=== PATIENT | female | born 1985 | race Hispanic/Latino ===

== ENCOUNTER 2023-05-31 05:41 | Emergency (ER) | payer SELFPAY ==
[2023-05-31] MEDS ORDERED: Morphine 4 MG/ML VIAL ONE (05:59)
[2023-05-31] MEDS ORDERED: Ondansetron PF 4 MG/2 ML Vial ONE (06:00)
[2023-05-31 06:09] LABS: #Eosinphils 0.1 thou/uL (0.0-0.7); #Monocytes 0.6 thou/uL (0.11-0.59); #Neutrophils 4.1 thou/uL (1.40-6.50); %Basophils 0.5 % (0.0-1.0); %Eosinophils 1.3 % (0.0-10.0); %Lymphocytes 34.9 % (21.0-51.0); %Monocytes 7.4 % (0.0-10.0); %Neutrophils 55.5 % (42.0-75.0); Hematocrit 41.7 % (36.0-47.0); Hemoglobin 13.7 g/dL (12.0-16.0); Mean Corpuscular HGB CONC 32.9 g/dL (32.0-36.0); Mean Corpuscular Hemoglobin 27.9 pg (27.0-31.0); Mean Corpuscular Volume 84.9 fl (78.0-98.0); Mean Platelet Volume 9.3 fL (7.4-10.4); Platelet Count 365 10x3/uL (130-400); RBC Distribution Width 13.7 % (11.5-14.5); Red Blood Cell (RBC) Count 4.91 mill/uL (4.20-5.40); White Blood Cell (WBC) Count 7.4 10x3/uL (4.8-10.8)
[2023-05-31 06:19] LABS: BHCG - Serum Negative (NEGATIVE); Pregs Control Background? CLEAR/WHITE (CLR/WHITE); Pregs Control Bar Appear? YES (CONTROL BAR)
[2023-05-31 06:40] LABS: Albumin 4.3 g/dL (3.5-5.0)
[2023-05-31 06:42] LABS: Calcium 9.3 mg/dL (7.8-10.44); Chloride 104 mmol/L (98-107); Potassium 4.1 mmol/L (3.5-5.1); Sodium 139 mmol/L (136-145)
[2023-05-31 06:43] LABS: Globulin 3.3 g/dL (2.4-3.5); Glucose 119 mg/dL (70-105); Protein, Total 7.6 g/dL (6.0-8.3)
[2023-05-31 06:44] LABS: Anion Gap 14 mmol/L (10-20); Carbon Dioxide 25 mmol/L (22-29)
[2023-05-31 06:45] LABS: Bilirubin, Total 0.5 mg/dL (0.2-1.2)
[2023-05-31 06:46] LABS: Alkaline Phosphatase 108 U/L (40-110); Calc. Creatinine Clearance 0 mL/min (70-130); Estimated GFR 114
[2023-05-31 06:47] LABS: BUN (Urea Nitrogen) 7 mg/dL (7.0-18.7)
[2023-05-31 06:48] LABS: AST (SGOT) 45 U/L (5-34)
[2023-05-31 06:49] LABS: ALT (SGPT) 49 U/L (8-55)
[2023-05-31 07:20] LABS: Bacteria/HPF None Seen HPF (None Seen); Bilirubin Negative (Negative); Blood, Urine Negative (Negative); Clarity Clear (Clear); Glucose, Urine (Dipstick) Normal (Negative); Ketone, Urine Negative (Negative); Leukocyte Negative Leu/uL (Negative); Nitrite Negative (Negative); Protein, Urine (Dipstick) Negative (Neg-Trace); RBC/HPF 0-3 HPF (0-3); Specific Gravity, Urine 1.014 (1.002-1.036); Squamous Epithelial 0-3 HPF (0-3); Urobilinogen Normal mg/dL (Less than 2); WBC/HPF 0-3 HPF (0-3); pH, Urine 7.5 (5.0-9.0)
[2023-05-31 07:21] LABS: Urine Culture Reflex Yes Yes
== END 2023-05-31 07:59 | disposition home or self-care (01) ==
LOC: ERS 05:41
DX: R10.32 Left lower quadrant pain (principal); R11.0 Nausea
CPT/HCPCS: 36415; 74177; 80053; 81001; 83605; 84703; 85025; 96361; 96374; 96375; J2270; J2405